=== PATIENT | female | born 1935 | race Caucasian/White ===

== ENCOUNTER 2017-11-06 15:05 | Emergency (ER) | payer MEDICARE, OTHER, SELFPAY ==
[2017-11-06 15:10] VITALS: BP 178/80; PULSE 80; RESP 18; TEMP 36.3; O2SAT 100; BMI 23.1
--- NOTE | 2017-11-06 15:17 | ED.BACK ---
HPI - Back Pain/Injury <JUAN Ruvalcaba - Last Filed: 11/06/17 22:22> General Chief Complaint: Back Pain/Injury Stated Complaint: LEFT SIDED LOW BACK PAIN Time Seen by Provider: 11/06/17 15:17 Source: patient History of Present Illness HPI Narrative: 82-year-old female with history of chronic back pain who recently had lumbar laminectomy toward the end of last year here for pain to her upper and a lower back over the past few months. She denies any recent trauma to her lower back. She states that she had had a long drive towards the beginning of the year it is and had pain since then. She denies any loss of bladder or bowel control. Patient is ambulatory into the emergency room. She denies any stressors or relievers of her pain. MD Complaint: back pain Related Data Home Medications Medication Instructions Recorded Confirmed glipizide 5 mg PO TID 11/06/17 11/06/17 tramadol 25 - 50 mg PO Q8H 11/06/17 11/06/17 Previous Rx's Medication Instructions Recorded cyclobenzaprine 10 mg PO TID PRN #10 tab 11/06/17 hydrocodone-acetaminophen [[place]] 1 tab PO Q6H PRN #10 tab 11/06/17 prednisone 40 mg PO DAILY #8 tab 11/06/17 Allergies Allergy/AdvReac Type Severity Reaction Status Date / Time No Known Drug Allergies Allergy Verified 11/06/17 15:13 Review of Systems <JUAN Ruvalcaba - Last Filed: 11/06/17 22:22> Constitutional Denies chills, Denies fever(s), Denies lethargy and Denies weakness Eyes Denies change in vision, Denies eye discharge, Denies irritation and Denies loss of vision Cardiovascular Denies dyspnea and Denies dyspnea on exertion Respiratory Denies cough, Denies dyspnea, Denies dyspnea on exertion and Denies wheezing Musculoskeletal Reports back pain Neurologic Denies loss of vision and Denies weakness Allergic/Immunologic Denies wheezing Exam <JUAN Ruvalcaba - Last Filed: 11/06/17 22:22> Const General: cooperative and well developed Nutritional Appearance: well nourished Orientation: alert, awake, oriented x3 and not confused Eyes General: appearance normal, both eyes and all related structures Eyelids: eyelids normal Conjunctivae: conjunctivae normal Sclera: sclerae normal Pupils: PERRL EOM: EOM intact bilaterally Resp Effort & Inspection: normal respiratory effort, able to speak in complete sentences, no respiratory distress and no use of accessory muscles Auscultation: clear to auscultation bilaterally, no rales, no rhonchi and no wheezes Cardio Rate: regular rate Rhythm: regular rhythm Heart Sounds: no click, no gallops, no murmurs and no rubs Pulses: normal peripheral pulses Back/Spine/Pelvis Back: back tenderness and No CVA tenderness Thoracic/Lumbar Spine: paraspinal tenderness Other: Distal CMS is intact Neuro General: alert, oriented x3, gait normal and no focal motor deficits Cranial Nerves: CN's II-XI intact bilaterally Speech: speech normal Motor: strength 5/5 throughout Sensory Exam: no sensory deficits noted Extrem General: full ROM, no clubbing, cyanosis or edema, no pedal edema and no calf tenderness Course <JUAN Ruvalcaba - Last Filed: 11/06/17 22:22> Last Vital Signs Temp 97.4 F L 11/06/17 15:10 Pulse 78 11/06/17 16:49 Resp 14 11/06/17 16:49 BP 185/73 H 11/06/17 16:49 Pulse Ox 100 11/06/17 16:49 <Quirino Zuluaga MD - Last Filed: 11/14/17 03:35> Last Vital Signs Temp 97.4 F L 11/06/17 15:10 Pulse 78 11/06/17 16:49 Resp 14 11/06/17 16:49 BP 185/73 H 11/06/17 16:49 Pulse Ox 100 11/06/17 16:49 MDM - Back Pain/Injury <JUAN Ruvalcaba - Last Filed: 11/06/17 22:22> [facility] Narrative Medical decision making narrative: Nontraumatic chronic back pain with no neurological deficits. Patient does have some signs of sciatica down her left leg with tingling into her left thigh. She is prescribed cyclobenzaprine along with short course of steroids. Patient requested pain medication she is prescribed a handful of [place]. She is encouraged not to use cyclobenzaprine the [place] or tramadol at the same time. She is encouraged to follow up with her medical management specialist for re-evaluation as she may need new imaging such as MRI to rule out complications. Return emergency room for any worsening symptoms. <Quirino Zuluaga MD - Last Filed: 11/14/17 03:35> Lab Data The PA/MOLD TECHNICIAN functioned independently for the care of this pt, I was available, but not asked to participate in care. I am unable to determine appropriateness of management without personally examining the pt. Discharge Plan Departure Patient Disposition: Home, Self-Care Clinical Impression: Low back pain Discharge Date/Time: 11/06/17 16:51 Interventions: ED Discharge Assessment Last Done: 11/06/17 16:51 Instructions: DI for Low Back Pain Activity Restrictions/Additional Instructions: Signs and symptoms presents as exacerbation of chronic back pain with sciatica. You have been prescribed a muscle relaxer called cyclobenzaprine use as directed do not use in conjunction with any of the pain medications as it can cause drowsiness that would be worsened with the pain medications. You have also been prescribed a short course of steroids to help with inflammation use as directed. Small amount of [place] is prescribed for pain do not use with your tramadol. Follow up with her primary care provider. Recommend following up with Orthopedics for further evaluation as she may need advanced imaging such as MRI for further evaluation. Return emergency room for any worsening symptoms. Prescriptions: New cyclobenzaprine 10 mg tablet 10 mg PO TID PRN (Reason: muscle spasm) Qty: 10 RF: 0 hydrocodone-acetaminophen [[place]] 5-325 mg tablet 1 tab PO Q6H PRN (Reason: pain) Qty: 10 RF: 0 prednisone 20 mg tablet 40 mg PO DAILY Qty: 8 RF: 0 No Action glipizide 5 mg tablet extended release 24hr 5 mg PO TID RF: 0 tramadol 50 mg tablet 25 - 50 mg PO Q8H RF: 0 Referrals: Tosha Serna PA-C [Primary Care Provider] -
--- NOTE | 2017-11-06 16:10 | ED_ITS ---
HPI - Back Pain/Injury <JUAN Ruvalcaba - Last Filed: 11/06/17 22:22> General Chief Complaint: Back Pain/Injury Stated Complaint: LEFT SIDED LOW BACK PAIN Time Seen by Provider: 11/06/17 15:17 Source: patient History of Present Illness HPI Narrative: 82-year-old female with history of chronic back pain who recently had lumbar laminectomy toward the end of last year here for pain to her upper and a lower back over the past few months. She denies any recent trauma to her lower back. She states that she had had a long drive towards the beginning of the year it is and had pain since then. She denies any loss of bladder or bowel control. Patient is ambulatory into the emergency room. She denies any stressors or relievers of her pain. MD Complaint: back pain Related Data Home Medications Medication Instructions Recorded Confirmed glipizide 5 mg PO TID 11/06/17 11/06/17 tramadol 25 - 50 mg PO Q8H 11/06/17 11/06/17 Previous Rx's Medication Instructions Recorded cyclobenzaprine 10 mg PO TID PRN #10 tab 11/06/17 hydrocodone-acetaminophen [[place]] 1 tab PO Q6H PRN #10 tab 11/06/17 prednisone 40 mg PO DAILY #8 tab 11/06/17 Allergies Allergy/AdvReac Type Severity Reaction Status Date / Time No Known Drug Allergies Allergy Verified 11/06/17 15:13 Review of Systems <JUAN Ruvalcaba - Last Filed: 11/06/17 22:22> Constitutional Denies chills, Denies fever(s), Denies lethargy and Denies weakness Eyes Denies change in vision, Denies eye discharge, Denies irritation and Denies loss of vision Cardiovascular Denies dyspnea and Denies dyspnea on exertion Respiratory Denies cough, Denies dyspnea, Denies dyspnea on exertion and Denies wheezing Musculoskeletal Reports back pain Neurologic Denies loss of vision and Denies weakness Allergic/Immunologic Denies wheezing Exam <JUAN Ruvalcaba - Last Filed: 11/06/17 22:22> Const General: cooperative and well developed Nutritional Appearance: well nourished Orientation: alert, awake, oriented x3 and not confused Eyes General: appearance normal, both eyes and all related structures Eyelids: eyelids normal Conjunctivae: conjunctivae normal Sclera: sclerae normal Pupils: PERRL EOM: EOM intact bilaterally Resp Effort & Inspection: normal respiratory effort, able to speak in complete sentences, no respiratory distress and no use of accessory muscles Auscultation: clear to auscultation bilaterally, no rales, no rhonchi and no wheezes Cardio Rate: regular rate Rhythm: regular rhythm Heart Sounds: no click, no gallops, no murmurs and no rubs Pulses: normal peripheral pulses Back/Spine/Pelvis Back: back tenderness and No CVA tenderness Thoracic/Lumbar Spine: paraspinal tenderness Other: Distal CMS is intact Neuro General: alert, oriented x3, gait normal and no focal motor deficits Cranial Nerves: CN's II-XI intact bilaterally Speech: speech normal Motor: strength 5/5 throughout Sensory Exam: no sensory deficits noted Extrem General: full ROM, no clubbing, cyanosis or edema, no pedal edema and no calf tenderness Course <JUAN Ruvalcaba - Last Filed: 11/06/17 22:22> Last Vital Signs Temp 97.4 F L 11/06/17 15:10 Pulse 78 11/06/17 16:49 Resp 14 11/06/17 16:49 BP 185/73 H 11/06/17 16:49 Pulse Ox 100 11/06/17 16:49 <Quirino Zuluaga MD - Last Filed: 11/14/17 03:35> Last Vital Signs Temp 97.4 F L 11/06/17 15:10 Pulse 78 11/06/17 16:49 Resp 14 11/06/17 16:49 BP 185/73 H 11/06/17 16:49 Pulse Ox 100 11/06/17 16:49 MDM - Back Pain/Injury <JUAN Ruvalcaba - Last Filed: 11/06/17 22:22> [facility] Narrative Medical decision making narrative: Nontraumatic chronic back pain with no neurological deficits. Patient does have some signs of sciatica down her left leg with tingling into her left thigh. She is prescribed cyclobenzaprine along with short course of steroids. Patient requested pain medication she is prescribed a handful of [place]. She is encouraged not to use cyclobenzaprine the [place] or tramadol at the same time. She is encouraged to follow up with her grocery specialist for re-evaluation as she may need new imaging such as MRI to rule out complications. Return emergency room for any worsening symptoms. <Quirino Zuluaga MD - Last Filed: 11/14/17 03:35> Lab Data The PA/RETAIL SALES ASSOCIATE BILINGUAL functioned independently for the care of this pt, I was available, but not asked to participate in care. I am unable to determine appropriateness of management without personally examining the pt. Discharge Plan Departure Patient Disposition: Home, Self-Care Clinical Impression: Low back pain Discharge Date/Time: 11/06/17 16:51 Interventions: ED Discharge Assessment Last Done: 11/06/17 16:51 Instructions: DI for Low Back Pain Activity Restrictions/Additional Instructions: Signs and symptoms presents as exacerbation of chronic back pain with sciatica. You have been prescribed a muscle relaxer called cyclobenzaprine use as directed do not use in conjunction with any of the pain medications as it can cause drowsiness that would be worsened with the pain medications. You have also been prescribed a short course of steroids to help with inflammation use as directed. Small amount of [place] is prescribed for pain do not use with your tramadol. Follow up with her primary care provider. Recommend following up with Orthopedics for further evaluation as she may need advanced imaging such as MRI for further evaluation. Return emergency room for any worsening symptoms. Prescriptions: New cyclobenzaprine 10 mg tablet 10 mg PO TID PRN (Reason: muscle spasm) Qty: 10 RF: 0 hydrocodone-acetaminophen [[place]] 5-325 mg tablet 1 tab PO Q6H PRN (Reason: pain) Qty: 10 RF: 0 prednisone 20 mg tablet 40 mg PO DAILY Qty: 8 RF: 0 No Action glipizide 5 mg tablet extended release 24hr 5 mg PO TID RF: 0 tramadol 50 mg tablet 25 - 50 mg PO Q8H RF: 0 Referrals: Tosha Serna PA-C [Primary Care Provider] -
[2017-11-06 16:49] VITALS: BP 185/73; PULSE 78; RESP 14; O2SAT 100
== END 2017-11-06 16:51 | disposition home or self-care (01) ==
PROVIDERS: Emergency Provider Nurse Practitioner Family; PCP Physician Assistant
DX: M54.5 Low back pain (principal)
CPT/HCPCS: 99282

== ENCOUNTER → 2018-03-25 09:09 | Outpatient (CLI) | payer MEDICARE, OTHER, SELFPAY ==
--- NOTE | 2018-03-25 09:12 | DI.MRI.S_ITS ---
PROCEDURE: MR LUMBAR SPINE WO CON INDICATIONS: low back pain TECHNIQUE: Noncontrast sagittal T1 spin echo and T2 fast echo, sagittal STIR, axial T1 and T2 fast spin echo through the lumbar spine. In cases with scoliosis, additional coronal T2 fast spin echo may be performed. COMPARISON: Merged With [facility], MR, L-SPINE WITHOUT CONTRAST, 04/04/2016, 14:33. Merged With [facility], CR, XR LUMBAR SPINE MIN 4V, 03/25/2018, 9:15. FINDINGS: Image quality: Excellent. Alignment and Curvature: 5 lumbar type vertebral bodies are present by plain film. There is mild grade 1 anterolisthesis of L4 on L5, and mild grade 1 retrolisthesis of L5 on S1, as before. Bone Marrow: Marrow is of normal overall signal. No acute vertebral body compression fractures. Moderate reactive signal within the endplates adjacent to the L5-S1 intervertebral disc is present, as before. Mild reactive signal within the endplates adjacent to the 4 L5 intervertebral disc is present, as before. Posterior fusion hardware at L4-L5 is present, as before. Spinal Cord: Conus medullaris terminates at the mid L2 level. Visualized cord demonstrates normal signal and size. Paraspinous Soft Tissues: No paravertebral masses. L1-L2: Mild disc desiccation. Mild facet and ligamentum flavum hypertrophy. No significant canal, nor foraminal stenosis. No change. L2-L3: Mild disc desiccation. Mild facet hypertrophy bilaterally. No significant canal, nor foraminal stenosis. No change. L3-L4: Mild disc desiccation and mild diffuse disc bulge. Mild facet and ligamentum flavum hypertrophy. Increased, mild canal stenosis. No change in mild bilateral foraminal stenosis. L4-L5: Mild disc desiccation. Moderate diffuse disc bulge. Moderate facet hypertrophy bilaterally. Moderate canal stenosis. Moderate foraminal stenosis bilaterally. No change. L5-S1: Severe disc height loss and desiccation. Moderate diffuse disc bulge. Moderate facet hypertrophy bilaterally. Mild canal stenosis. Slightly increased, severe bilateral foraminal stenosis, with possible mild flattening deformity of the bilateral L5 nerve roots.. IMPRESSION: 1. Multilevel degenerative disc and facet disease, as well as ligamentum flavum hypertrophy. 2. Increased, mild L3-L4 canal stenosis. No change in moderate L4-L5 canal stenosis. 3. Slightly increased, severe bilateral L5-S1 foraminal stenoses, with possible mild flattening deformity of the bilateral L5 nerve roots within the neural foramina. Recommend correlation with clinical symptoms to ascertain relevance of this finding. Dictated by: Ashkan Page M.D. on 03/25/2018 at 10:57 Approved by: Ashkan Page M.D. on 03/25/2018 at 11:03
--- NOTE | 2018-03-25 09:12 | DI.RAD.S_ITS ---
PROCEDURE: XR LUMBAR SPINE MIN 4V INDICATIONS: Eval TECHNIQUE: 5 views of the lumbar spine were acquired. COMPARISON: [facility] [place], LEONID, SPINE LUMB MIN 4VW, 04/01/2016, 11:06. FINDINGS: Bones: No fracture or focal osseous destruction. There is levocurvature centered at L1. Postsurgical changes related to L4-L5 posterior dynamic stabilization device which appears intact. Severe L5-S1 disc degeneration. Trace anterolisthesis of L4-L5 and trace retrolisthesis of L5 on S1. Mild narrowing of the L4-L5 disc space. Soft tissues: Overlying bowel gas pattern is normal. No suspicious soft tissue calcifications. Oblique images: No pars defects. IMPRESSION: Lower lumbar degenerative disc disease and grade 1 anterolisthesis of L4 on L5. No definite interval change. Levoscoliosis as before. Dictated by: Thomas Sharpe M.D. on 03/25/2018 at 11:24 Approved by: Thomas Sharpe M.D. on 03/25/2018 at 11:28
== END ==
PROVIDERS: PCP Physician Assistant; Visit Provider Physical Medicine & Rehabilitation
DX: M54.5 Low back pain (principal); M51.36 Other intervertebral disc degeneration, lumbar region; M51.37 Other intervertebral disc degeneration, lumbosacral region; M48.061 Spinal stenosis, lumbar region without neurogenic claudication; M48.07 Spinal stenosis, lumbosacral region; M53.3 Sacrococcygeal disorders, not elsewhere classified; M96.1 Postlaminectomy syndrome, not elsewhere classified; M43.16 Spondylolisthesis, lumbar region
CPT/HCPCS: 72110; 72148

== ENCOUNTER 2018-04-14 09:26 | Outpatient (CLI) | payer MEDICARE, OTHER, SELFPAY ==
[2018-04-14] VITALS (11 sets, daily range): BP systolic 140–170; BP diastolic 50–87; PULSE 72–84; RESP 16–18; TEMP 36.1; O2SAT 97–100
--- NOTE | 2018-04-14 09:32 | DI.RAD.S_ITS ---
PROCEDURE: PAIN L/S TRANSFORAMINAL INJECT INDICATIONS: Spinal stenosis with left lower extremity symptoms FINDINGS: Fluoroscopic spot filming was performed to verify placement of spinal needles at the left-sided L4-5 level(s), as labeled on the films. Appropriate location(s) of the needle tip(s) was confirmed by injection of iodinated contrast. IMPRESSION: Successful left L4-5 needle tip localization for transforaminal epidural steroid injection. Dictated by: Marquis Velasquez M.D. on 04/14/2018 at 16:34 Approved by: Marquis Velasquez M.D. on 04/14/2018 at 16:34
[2018-04-14] MEDS: MIDAZOLAM 5 MG/5 ML VIAL IV (10:25)
[2018-04-14] MEDS: IOPAMIDOL 15 ML VIAL 3 ML INJ (10:35)
[2018-04-14] MEDS: BUPIVACAINE 0.25% (PF) VIAL 2 ML INJ (10:35)
[2018-04-14] MEDS: methylPREDNISolone acetate 80 MG/ML VIAL INJ (10:35)
[2018-04-14] MEDS: DEXAMETHASONE 10 MG/ML VIAL 20 MG INJ (10:35)
--- NOTE | 2018-04-14 10:37 | PC.NURSE ---
pt being transported to post op area in stable condition
--- NOTE | 2018-04-14 10:42 | P.PCN_ITS ---
Procedures Date/Time Date of procedure: 04/14/18 Time of procedure: 10:41 General Procedure description: PREOP DIAGNOSIS 1. FORMAINAL STENOSIS WITH LE SYMPTOMS POST OP DIAGNOSIS 1. FORMAINAL STENOSIS WITH LE SYMPTOMS PROCEDURES 1. FLUOROSCOPICALLY GUIDED CONTRAST CONTROLLED TRANSFORAMINAL EPIDURAL STEROID INJECTION - LEFT L4/5 PHYSICIAN: Jakub Moe DO INDICATIONS: Tyesha is referred by JINNY Serna for treatment of Foraminal Stenosis with Left LE Symptoms FINDINGS Foraminal Nerve Root Compression secondary to disc disease and facet hypertrophy DESCRIPTION OF PROCEDURE: Following denial of allergy and review of potential side effects and complications, including, but not necessarily limited to, infection, allergic reaction, local tissue breakdown, stroke, temporary or permanent nerve injury, paralysis, and possible , the patient indicated that the patient understood and agreed to proceed. An informed consent document was signed by the patient, witnessed by a nurse, and placed in the patient's chart. Additionally, other treatment options including medications, modalities, and physical therapy were reviewed with the patient. After review of previous anaesthesic history and IV conscious sedation the patient was deemed safe to proceed with todays procedure with IV conscious sedation as ASA class II designation. Safety time-out was performed to confirm patient ID, procedure to be performed and site of procedure. IV sedation was accomplished with a combination of 2mg of Versed administered by the RN after DO order, titrated to patient comfort during the course of the procedure while the patient remained responsive to all verbal commands In the prone position following sterile prep and drape of the lumbar region, the left L4/5 posterior neuroforamen was identified fluoroscopically. The skin was anesthetized via a 25-gauge 1.5-inch needle with 1% lidocaine solution. At this point, a 25-gauge 3.5-inch spinal needle was atraumatically introduced and advanced under fluoroscopic guidance through the posterior left L4/5 neuroforamen to approximately the anterior aspect of the canal. Depth was confirmed on lateral view. Following negative aspiration, injection of approximately 1.5 cc of Isovue 200 under live fluoroscopy in the AP view confirmed excellent flow along the nerve root, into the epidural space without vascular or intrathecal uptake observed Radiological data, including multiple fluoroscopic views of the lumbosacral spine, reveal a spinal needle at the left L4/5 posterior neuroforamen. Subsequent views show flow of contrast material flowing superiorly and inferiorly along the nerve root confirming epidural flow. Subsequently, a test dose of 1.5 cc of 1% lidocaine solution was administered and patient was observed for two minutes for signs or symptoms of complications , including abdominal pain, shortness of breath, bilateral upper or lower extremity weakness, nausea and vomiting, prior to steroid injection. At this point, a total of 3 cc or 20 mg of dexamethasone and 80mg Depo Medrol was injected without incident. The procedure tolerated the procedure well without signs or symptoms of complications prior to transfer to the recovery area continued monitoring without incident. The patient was then transferred to the recovery area where they were observed for an appropriate time after the injection. The patient reported a VAS score of 7 prior to the procedure and a post- procedure VAS of 0. Total Fluoroscopy Time: 20.9 seconds Total Conscious Sedation Time: 24min POST OP INSTRUCTIONS The patient was provided a Pain Log to continue to record their response to the target-specific procedure prior to follow-up visit with their referring physician. Additionally, specific post-injection care instructions and a contact number to our office were provided if concerns arise regarding possible complications associated with the procedure are suspected. Jakub Moe DO Complications: none
--- NOTE | 2018-04-14 10:47 | PC.NURSE ---
recieved from Mony via w/c, able to transfer self from w/c to recliner, pain free. tolerating drinking coffee and eating cookie
== END 2018-04-14 11:04 ==
PROVIDERS: PCP Physician Assistant; Visit Provider Physical Medicine & Rehabilitation
DX: M48.061 Spinal stenosis, lumbar region without neurogenic claudication (principal); M51.16 Intervertebral disc disorders with radiculopathy, lumbar region; M99.83 Other biomechanical lesions of lumbar region
CPT/HCPCS: 64483; 99152; J1040; J1100; J2250

== ENCOUNTER 2018-04-28 12:54 | Outpatient (CLI) | payer MEDICARE, OTHER, SELFPAY ==
[2018-04-28] VITALS (7 sets, daily range): BP systolic 141–167; BP diastolic 54–70; PULSE 64–85; RESP 13–18; TEMP 36.3; O2SAT 98–100
--- NOTE | 2018-04-28 12:55 | DI.RAD.S_ITS ---
PROCEDURE: PAIN L/SI FACET INJ/BLK 1STL INDICATIONS: Lumbosacral spondylosis FINDINGS: Fluoroscopic spot filming was performed to verify placement of spinal needles at the left L4-L5 and L5-S1 level(s), as labeled on the films. Appropriate location(s) of the needle tip(s) was confirmed by injection of iodinated contrast. IMPRESSION: Fluoroscopy foca management Dictated by: Wilton Hamilton M.D. on 04/28/2018 at 17:10 Approved by: Wilton Hamilton M.D. on 04/28/2018 at 17:11
[2018-04-28] MEDS: BETAMETHASONE 30 MG/5 ML MDV 12 MG INJ (14:14)
[2018-04-28] MEDS: MIDAZOLAM 2 MG/2 ML VIAL IV (14:14)
[2018-04-28] MEDS: IOPAMIDOL 15 ML VIAL 3 ML INJ (14:25)
[2018-04-28] MEDS: BUPIVACAINE 0.5% (PF) VIAL 2 ML INJ (14:25)
--- NOTE | 2018-04-28 14:30 | P.PCN_ITS ---
Procedures Date/Time Date of procedure: 04/28/18 Time of procedure: 14:28 General Procedure description: PREOP DIAGNOSIS 1. FACET ARTHROPATHY, 2. AXIAL LBP, 3. MULTILEVEL DDD, POST OP DIAGNOSIS 1. FACET ARTHROPATHY, 2. AXIAL LBP, 3. MULTILEVEL DDD, PROCEDURES 1. FLUOROSCOPICALLY GUIDED CONTRAST CONTROLLED FACET JOINT INJECTIONS LEFT L4/5 , L5/S1 SURGEON: Jakub Moe, INDICATIONS Tyesha is referred by JINNY Serna for treatment of Axial LBP FINDINGS Multilevel Facet Arthropathy with Clinically significant axial LBP DESCRIPTION OF PROCEDURE Fluoroscopically guided, contrast-controlled left L4/5, L5/S1 facet joint injections. Following denial of allergy and review of potential side effects and complications, including, but not necessarily limited to, infection, allergic reaction, local tissue breakdown, stroke, temporary or permanent nerve injury, paralysis, and possible , the patient indicated that the patient understood and agreed to proceed. An informed consent document was signed by the patient, witnessed by a nurse, and placed in the patient's chart. Additionally, other treatment options including medications, modalities, and physical therapy were reviewed with the patient. After review of previous anaesthesic history and IV conscious sedation the patient was deemed safe to proceed with todays procedure with IV conscious sedation as ASA class II designation. Safety time-out was performed to confirm patient ID, procedure to be performed and site of procedure. IV sedation was accomplished with a combination of 2mg was administered by the RN after DO order , titrated to patient comfort during the course of the procedure while the patient remained responsive to all verbal commands. In the prone position, following sterile prep and drape of the lumbar region, the posterior aspect of the left L4/5, L5/S1 facet joints were identified fluoroscopically. The skin was anesthetized via a 25-gauge 1.5-inch needle with 1% lidocaine solution into the corresponding facet joints. At this point, a 22-gauge 3.5-inch spinal needle was atraumatically introduced and advanced under fluoroscopic guidance into the corresponding facet joints. Following negative aspiration, injections of approximately 0.2-cc of Isovue 200 confirmed interarticular placement without vascular uptake. Radiological data, including multiple fluoroscopic views of the lumbosacral spine, reveal a spinal needle at the left L4/5, L5/S1 facet joints. Subsequent views show flow of contrast material both superiorly and inferiorly within the joint space without vascular or intrathecal uptake. At this point, a total of 0.5 cc including a mixture of 0.25cc Marcaine and 0.25cc betamethasone was injected without complication into each of the corresponding facet joints. The procedure tolerated the procedure well without signs or symptoms of complications prior to transfer to the recovery area continued monitoring without incident. The patient was then transferred to the recovery area where they were observed for an appropriate period of time after the injection. The patient reported a VAS score of 7 prior to the procedure and a post-procedure VAS of 0. Total Fluoroscopy Time: 12.7 seconds Total Conscious Sedation Time: 24min POST OP INSTRUCTIONS The patient was provided a Pain Log to continue to record their response to the target-specific procedure prior to follow-up visit with their referring physician. Additionally, specific post-injection care instructions and a contact number to our office were provided if concerns arise regarding possible complications associated with the procedure are suspected. Jakub Moe DO Complications: none
--- NOTE | 2018-04-28 14:37 | PC.NURSE ---
ACCEPTED CARE OF PT POST PROCEDURE. PT IN STABLE CONDITION
--- NOTE | 2018-04-28 14:38 | PC.NURSE ---
pt tolerated procedure, assisted pt off table and into w/c without difficulty, she is alert and maintaining her vs. Transferred pt to pre procedure room for continued monitoring by Mony SANTILLAN
== END 2018-04-28 14:58 | disposition home or self-care (01) ==
LOC: RAD 12:55
PROVIDERS: PCP Physician Assistant; Visit Provider Physical Medicine & Rehabilitation
DX: M47.816 Spondylosis without myelopathy or radiculopathy, lumbar region (principal); M47.817 Spondylosis without myelopathy or radiculopathy, lumbosacral region; M51.36 Other intervertebral disc degeneration, lumbar region; M51.37 Other intervertebral disc degeneration, lumbosacral region; M54.5 Low back pain
CPT/HCPCS: 64493; 64494; 99152; J0702; J2250

== ENCOUNTER 2018-06-02 14:30 | Outpatient (CLI) | payer MEDICARE, OTHER, SELFPAY ==
[2018-06-02] VITALS (9 sets, daily range): BP systolic 150–170; BP diastolic 59–99; PULSE 76–87; RESP 16–18; TEMP 36.3; O2SAT 99–100
--- NOTE | 2018-06-02 14:32 | DI.RAD.S_ITS ---
PROCEDURE: PAIN L/SI FACET INJ/BLK 1STL INDICATIONS: SPONDYLOSIS FINDINGS: Fluoroscopic spot filming was performed to verify placement of spinal needles at the L4, L5, S1 level(s), as labeled on the films. Appropriate location(s) of the needle tip(s) was confirmed by injection of iodinated contrast. Dictated by: Thomas Sharpe M.D. on 06/03/2018 at 9:43 Approved by: Thomas Sharpe M.D. on 06/03/2018 at 9:44
[2018-06-02] MEDS: MIDAZOLAM 5 MG/5 ML VIAL IV (15:34)
[2018-06-02] MEDS: BUPIVACAINE 0.5% (PF) VIAL 2 ML INJ (15:44)
[2018-06-02] MEDS: IOPAMIDOL 15 ML VIAL 3 ML INJ (15:44)
[2018-06-02] MEDS: LIDOCAINE 1% 20 ML INJ 10 ML INJ (15:44)
[2018-06-02] MEDS: BETAMETHASONE 30 MG/5 ML MDV 12 MG INJ (15:44)
--- NOTE | 2018-06-02 15:46 | PC.NURSE ---
ASSISTING PT OFF TABLE AND TRANSPORTING TO POST PROC AREA IN STABLE CONDITION
--- NOTE | 2018-06-02 15:54 | P.PCN_ITS ---
Procedures Date/Time Date of procedure: 06/02/18 Time of procedure: 15:53 General Procedure description: POST OP DIAGNOSIS 1. FACET ARTHROPATHY PROCEDURES 1. Left L4, L5 and S1 MB BLOCKS PHYSICIAN: Jakub Moe DO BARBER Arambula is referred by KAHLIL Serna for treatment of Left Axial LBP. DESCRIPTION OF PROCEDURE Fluoroscopically guided, contrast-controlled left L4, L5 and S1 medial branch blocks with 0.5cc of 0.5% Marcaine. Following denial of allergy and review of potential side effects and complications, including, but not necessarily limited to, infection, allergic reaction, local tissue breakdown, nerve injury, paralysis, stroke and possible , the patient indicated that the patient understood and agreed to proceed. An informed consent document was signed by the patient, witnessed by a nurse, and placed in the patient's chart. After review of previous anaesthesic history and IV conscious sedation the patient was deemed safe to proceed with todays procedure with IV conscious sedation as ASA class II designation. Safety time-out was performed to confirm patient ID, procedure to be performed and site of procedure. IV sedation was accomplished with a combination of 4mg of Versed was administered by the RN after DO order, titrated to patient comfort during the course of the procedure while the patient remained responsive to all verbal commands. In the prone position, following sterile prep and drape of the lumbar region, the left L4, L5 and S1 anatomical location of the medial branch of the dorsal ramus was identified fluoroscopically. Subsequently an anesthetic skin wheal using 1% lidocaine solution was initiated at each of the anatomical spots. Subsequently then a 22-gauge 3.5-inch spinal needle was atraumatically introduced and advanced under fluoroscopic guidance at each of the corresponding sites at the left L4, L5 and S1 MB. After negative aspiration, 0.2 cc of Isovue 200 was injected, confirming placement without vascular or intrathecal uptake. Subsequently then 0.5 cc of 0.5% Marcaine solution was injected at each of the corresponding sites at the left L4, L5 and S1 medial branch locations. The patient tolerated the procedure well without signs or symptoms of complications. The patient tolerated the procedure well without signs or symptoms of complications prior to transfer to the recovery area continued monitoring without incident. Post-procedure, the patient was monitored initiating provocative activities to measure the amount of relief from block of the facetogenic pain. The patient reported a VAS of 7 prior to the procedure and a post-procedure VAS of 1. It has been a pleasure to assist in the diagnostic and therapeutic care of your patient. Total Fluoroscopy Time: 24.8 seconds Total Conscious Sedation Time: 24min POST OP INSTRUCTIONS The patient was provided with a Pain Log to complete over the next several hours and subsequent days prior to the patient's follow up with the ordering physician. If the patient has insole lip turner relief to the solution applied, then they may be a candidate for medial branch rhizotomy. The patient is aware , was provided, once again, with a Pain Log and will follow up with the referring physician for review and clinical correlation Jakub Moe DO Complications: none
--- NOTE | 2018-06-03 12:32 | PC.NURSE ---
Follow up call made and patient reports she is doing great. Pain at a 2/10 and she is up doing her usual booking of her flights and such.
== END 2018-06-02 16:24 ==
LOC: RAD 14:32
PROVIDERS: PCP Physician Assistant; Visit Provider Physical Medicine & Rehabilitation
DX: M47.817 Spondylosis without myelopathy or radiculopathy, lumbosacral region (principal); M47.816 Spondylosis without myelopathy or radiculopathy, lumbar region; M51.26 Other intervertebral disc displacement, lumbar region; M48.07 Spinal stenosis, lumbosacral region; M96.1 Postlaminectomy syndrome, not elsewhere classified
CPT/HCPCS: 64493; 64494; 99152; J0702; J2250

== ENCOUNTER → 2019-02-16 12:31 | Outpatient (CLI) | payer MEDICARE, OTHER, SELFPAY ==
--- NOTE | 2019-02-16 | DI.US.S_ITS ---
LIMITED ULTRASOUND OF RIGHT BREAST: 02/16/2019 CLINICAL: Microcalcifications right breast. Comparison is made to exams dated: 02/16/2019 mammogram, 03/28/2008 mammogram, 02/08/2004 mammogram - [facility], and 04/10/2000 mammogram - [facility]. Color flow and real-time ultrasound of the right breast outer aspect were performed. Gonzales scale images of the real-time examination were reviewed. There is a 0.5 x 0.2 x 0.5 cm oval indistinct hypoechoic mass in the right breast at 9:00 position 4 cm from the nipple which demonstrates no vascularity on Doppler imaging. There is 0.6 x 0.6 x 0.3 cm oval indistinct hypoechoic mass in the right breast at 11:30 position 2 cm from the nipple which demonstrates no vascularity on Doppler imaging. There is no convincing ultrasound correlate for the segmental pleomorphic calcifications of the lateral right breast seen on comparison diagnostic mammography performed immediately prior to this exam. Targeted ultrasound of the right axilla demonstrates a 1.5 x 1.9 x 1.0 cm right axillary lymph node with focal cortical thickening of 4 mm. IMPRESSION: HIGHLY SUGGESTIVE OF MALIGNANCY 1) Subcentimeter hypoechoic masses in the right breast at 9:00 position 4 cm from the nipple and 11:30 position 2 cm from the nipple are indeterminate and may representing complicated cysts versus malignancy. There is no convincing ultrasound correlate for the segmental pleomorphic calcifications of the lateral right breast seen on diagnostic mammography. A stereotactic guided biopsy is recommended but deferred at this time pending ultrasound guided biopsy of the more suspicious lesion in the left breast. Subsequent biopsy of the right breast can be performed to evaluate for extent of disease if clinically indicated. Consider breast MRI for further evaluation. 2) Abnormal cortical thickening of the right axillary lymph node is moderately suspicious for malignancy. An ultrasound-guided biopsy is recommended but deferred at this time pending ultrasound guided biopsy of the more suspicious lesion in the left breast. Subsequent biopsy of the right axilla can be performed to evaluate for extent of disease if clinically indicated. These results and recommendations were discussed with the patient at the time of the exam by the [facility] Radiologist Dr. Thomas Sharpe in person. This exam was interpreted at Station ID: [id number]. Electronically Signed By: Miguel Lopez M.D. ecl/:02/16/2019 16:51:19 letter sent: Biopsy Required Ultrasound BI-RADS: 5 Highly suggestive of malignancy
--- NOTE | 2019-02-16 | DI.MG.S_ITS ---
BILATERAL DIGITAL DIAGNOSTIC MAMMOGRAM 3D/2D: 02/16/2019 CLINICAL: Left breast lump. Comparison is made to exams dated: 03/28/2008 mammogram, 02/08/2004 mammogram - [facility], and 04/10/2000 mammogram - [facility]. The tissue of both breasts is heterogeneously dense. This may lower the sensitivity of mammography. There is a triangular marker overlying the skin of the superior left breast at the site of the patient's reported palpable abnormality. There are extensive pleomorphic calcifications of the superior left breast in a segmental distribution involving both the superior medial and superior lateral quadrants. These measure at least 4.1 cm anteroposterior by 7.4 cm craniocaudal by 7.3 cm medial-lateral in extent. There are irregular indistinct focal asymmetries associated with the calcifications. There are also extensive pleomorphic calcifications of the right breast in a segmental distribution involving both the superior lateral and inferior lateral quadrants. These measure at least 4.5 cm anteroposterior by 4.1 cm craniocaudal by 6.4 cm medial-lateral in extent. There are irregular indistinct focal asymmetries associated with the calcifications. IMPRESSION: INCOMPLETE: NEEDS ADDITIONAL IMAGING EVALUATION 1) 7.4 x 7.3 x 4.1 cm extensive segmental pleomorphic calcifications of the superior left breast involving both the superior medial and superior lateral quadrants. Targeted diagnostic ultrasound recommended for further evaluation, which will be performed immediately following this exam. 2) 6.4 x 4.5 x 4.1 cm extensive segmental pleomorphic calcifications of the lateral right breast involving both the superior lateral and inferior lateral quadrants. Targeted diagnostic ultrasound recommended for further evaluation, which will be performed immediately following this exam. This exam was interpreted at Station ID: [id number]. NOTE: For mammograms, a report in lay terms will be sent to the patient. Approximately 15% of breast malignancies will not be visualized mammographically. In the management of a palpable breast mass, a negative mammogram must not discourage biopsy of a clinically suspicious lesion. Electronically Signed By: Miguel Lopez M.D. ecl/:02/16/2019 13:40:38 ACR BI-RADS Category 0: Incomplete [id number]
--- NOTE | 2019-02-16 | DI.US.S_ITS ---
LIMITED ULTRASOUND OF LEFT BREAST: 02/16/2019 CLINICAL: Palpable left breast lump. Comparison is made to exams dated: 02/16/2019 mammogram, 03/28/2008 mammogram, 02/08/2004 mammogram - [facility], and 04/10/2000 mammogram - [facility]. Color flow and real-time ultrasound of the left breast upper aspect were performed. Gonzales scale images of the real-time examination were reviewed. There is a 2.9 x 3.4 x 1.7 cm irregular hypoechoic mass with angular margins and internal calcifications in the left breast at 11:00 position 3 cm from the nipple, which demonstrates peripheral vascularity on Doppler ultrasound. This correlates with the site of patient's focal palpable concern, as well as the segmental pleomorphic calcifications seen on diagnostic mammography. There is a 1.1 x 0.7 x 1.0 cm irregular hypoechoic mass with indistinct margins and no significant vascularity on Doppler ultrasound in the left breast at 2:00 position 2 cm from the nipple. Targeted ultrasound of the left axilla demonstrates a left axillary lymph nodes demonstrating cortical thickening up to 3 mm. IMPRESSION: HIGHLY SUGGESTIVE OF MALIGNANCY 1. 3.4 x 2.9 x 1.7 cm irregular annular mass in the left breast at 11:00 position 3 cm from the nipple is highly suggestive of malignancy, and correlates with both the patient's focal palpable area of concern and the segmental pleomorphic calcifications seen on diagnostic mammography. An ultrasound-guided biopsy is recommended. 2. Left axillary lymph node demonstrating borderline cortical thickening, which is at low suspicion for malignancy. An ultrasound-guided biopsy is recommended. 3. 1.1 x 1.0 x 0.7 cm irregular indistinct mass in the left breast at 2:00 position 2 cm from the nipple is at moderate suspicion for malignancy. An ultrasound-guided biopsy is recommended but deferred at this time pending pathology results from the additional biopsies recommended above. The biopsy can be performed to assess for extent of disease, versus breast MRI to evaluate disease extent. These results and recommendations were discussed with the patient at the time of the exam by the [facility] Radiologist Dr. Thomas Sharpe in person. This exam was interpreted at Station ID: [id number]. Electronically Signed By: Miguel Lopez M.D. ecl/:02/16/2019 16:40:48 letter sent: Biopsy Required Ultrasound BI-RADS: 5 Highly suggestive of malignancy
== END ==
PROVIDERS: Visit Provider Student in an Organized Health Care Education/Training Program
DX: N63.20 Unspecified lump in the left breast, unspecified quadrant (principal)
CPT/HCPCS: 76642; 77066; G0279

== ENCOUNTER → 2019-03-08 07:38 | Outpatient (CLI) | payer MEDICARE, OTHER, SELFPAY ==
--- NOTE | 2019-03-08 | DI.MG.S_ITS ---
UNILATERAL LEFT DIGITAL DIAGNOSTIC MAMMOGRAM POST-NEEDLE BIOPSY: 03/08/2019 CLINICAL: Left breast post biopsy. Comparison is made to exams dated: 03/28/2008 mammogram, 02/08/2004 mammogram - [facility], 04/10/2000 mammogram - [facility], 02/16/2019 ultrasound, 02/16/2019 ultrasound, and 02/16/2019 mammogram - [facility]. The tissue of left breast is heterogeneously dense. This may lower the sensitivity of mammography. There is a new mindy-shaped biopsy marker clip in the superior medial left breast at posterior depth. This is located at the biopsy site. There is redemonstration of suspicious calcifications within the superior left breast. IMPRESSION: POST PROCEDURE MAMMOGRAM FOR MARKER PLACEMENT There is a new mindy-shaped biopsy marker clip in the superior medial left breast at posterior depth. This is located at the biopsy site. This exam was interpreted at Station ID: [id number]. NOTE: For mammograms, a report in lay terms will be sent to the patient. Approximately 15% of breast malignancies will not be visualized mammographically. In the management of a palpable breast mass, a negative mammogram must not discourage biopsy of a clinically suspicious lesion. Electronically Signed By: Miguel Lopez M.D. ecl/:03/08/2019 10:15:47 ACR BI-RADS Category Post-procedure mammogram for marker placement
--- NOTE | 2019-03-08 | DI.US.S_ITS ---
ULTRASOUND GUIDED BIOPSY LEFT BREAST USING VACUUM DEVICE WITH MARKING DEVICE INSERTED AND POST DIGITAL MAMMOGRAPHIC IMAGIN03/08/2019 CLINICAL: Left breast mass. PATIENT CONSENT: Risks (minor bleeding, infection, vasovagal reaction and repeat procedure), benefits and alternatives were explained to the patient and written informed consent was obtained. Correlation is made to exams dated: 03/08/2019 mammogram, 02/16/2019 ultrasound, 02/16/2019 ultrasound, 02/16/2019 mammogram, 03/28/2008 mammogram, and 02/08/2004 mammogram - [facility]. An ultrasound guided biopsy using real-time ultrasound was performed for the concerning mass located in the left breast at 11 o'clock posterior depth 3 cm from the nipple. This was described on the previous ultrasound report. The skin was prepped in the usual manner. A skin roddy was made in the breast. The abnormality was approached from the lateral aspect. A 13 gauge biopsy needle was placed adjacent to the abnormality under ultrasound guidance. Once the needle was documented to be in the correct location, ten specimens were obtained using the Mammotome biopsy system. A Mauro-shaped clip was inserted into the biopsy cavity. A skin adhesive was applied to the access site. Post procedure digital mammographic imaging demonstrates the location device at the targeted area. The specimens were sent to the laboratory for pathological analysis. IMPRESSION: ULTRASOUND GUIDED BIOPSY MALIGNANT Ultrasound guided biopsy of the mass in the left breast at 11 o'clock posterior depth 3 cm from the nipple was successful with no apparent post procedure complications. Pathology indicates malignant invasive ductal carcinoma (ID). Pathology results are concordant with imaging findings. A surgical/oncologic consultation is recommended. This exam was interpreted at Station ID: [id number]. Miguel Fowler M.D. [facility],aty/:03/11/2019 17:47:35
--- NOTE | 2019-03-08 | PATH_ITS ---
[facility] Accession Number: [id number] . 01 Material submitted: . breast - LEFT BREAST MASS 11 O'CLOCK 3 CM FN CORE BIOPSY, 10 PASSES . 02 Diagnosis: Left Breast Mass, 11 o'clock, 3 cm from Nipple, Needle Core Biopsies: Invasive ductal carcinoma with the following features: 1. Holt grade: 2 of 3 (poor tubule formation, intermediate nuclear grade, low mitotic activity). 2. Greatest linear extent: 3 mm. 3. Ductal carcinoma in situ: Not identified. 4. Microcalcifications: Present in association with carcinoma and benign breast parenchyma. 5. Lymphovascular invasion: Not identified. . . BREAST BIOMARKERS: Estrogen Receptor (ER) Status: Positive, 80%. Average intensity of staining: Strong. Primary antibody: SP1 Progesterone Receptor (PgR) Status: Negative. Average intensity of staining: Not applicable. Primary antibody: 1E2 HER2 (by immunohistochemistry): Equivocal (2+) Primary antibody: 4B5 HER2 (ERBB2) (by in situ hybridization): Results are pending, and will be issued in an addendum. . . Cold Ischemia and Fixation Times: Meets requirements in the latest version of the ASCO/CAP guidelines. Testing performed on Block Number: A1. . TECHNICAL NOTE: The scoring criteria for breast biomarkers by immunohistochemistry is based on the current ASCO/CAP guidelines (Charbel et al, Arch Pathol Lab Med 2010: 134(6): 907-922 / Rad FARLEY et al, Arch Pathol Lab Med 2014: 138(2): 241-256). Deparaffinized sections of formalin fixed tissue (along with appropriate positive controls) are incubated with the above antibody(s). Using the automated [place] stainer, tissue is incubated with the designated antibody* which is then localized by a non-biotin, dual polymer detection system. The external controls are reviewed for appropriate reactivity and found to be adequate. Results on the target cell population are indicated above. These tests have not been validated on decalcified tissue. V 03/10/2019 1737 Local . 02 Comment: As part of routine senior software quality engineer, Dr. Coyne has reviewed the H/E slides from this case and agrees with the diagnosis of invasive mammary carcinoma. The findings in this case were reported to Nicole Whitman PA-C via her medical leader Tori by Dr. Santiago Marlow on 03/09/2019 at 2:00 p.m. . 02 Electronically signed: . Santiago Marlow MD, PhD, Pathologist NPI- [id number] . 01 Gross description: . Received one formalin-filled container labeled with the patient's name and designated left breast mass 11 o'clock 3 CM FN core biopsy 10 passes. The specimen is received with a plastic filter in container, sample loose in container and consists of multiple yellow-crowley portions of tissue which range in size from less than 0.1 cm to 0.5 x 0.1 x 0.1 cm. The specimen is filtered, wrapped, and entirely submitted in one cassette. Collection date: 03/08/2019. Possible collection time per requisition: 10:52. Total fixation time: 12 hours, up to 24. ([id number]) /[facility] 03/09/2019 0238 Local . 02 Microscopic: . Sections are of fibrotic breast parenchyma infiltrated by proliferation of epithelioid cells in a trabecular growth pattern, consistent with invasive mammary carcinoma. The carcinoma cells are strongly and diffusely positive for e-cadherin by immunohistochemistry, consistent with ductal carcinoma, and excluding lobular carcinoma. The carcinoma cells are positive for estrogen receptor reactivity (80%, strong), are negative for progesterone receptor reactivity, and are equivocal (2+) for HER-2/protein overexpression. All controls stains show appropriate reactivity. . * This test was developed and its performance characteristics determined by [employer]. It has not been cleared or approved by the U.S. Food and Drug Administration. The FDA has determined that such clearance or approval is not necessary. This test is used for clinical purposes. It should not be regarded as investigational or for research. . 02 Pathologist provided ICD-10: C50.912 . 02 CPT . 312729, L13050, [id number] Performed at: 01 [facility] [address] [id number] MD Brock Buck MD Phone: [phone] Performed at: 02 [facility] [address] [place], [place] [id number] MD Angela Coyne MD Phone: [phone]
== END ==
PROVIDERS: PCP Student in an Organized Health Care Education/Training Program; Visit Provider Student in an Organized Health Care Education/Training Program
DX: C50.212 Malignant neoplasm of upper-inner quadrant of left female breast (principal); Z17.0 Estrogen receptor positive status [ER+]
CPT/HCPCS: 19083; 77065; 88305; 88341

== ENCOUNTER 2019-03-11 14:30 | Outpatient (CLI) | payer MEDICARE, OTHER, SELFPAY ==
[2019-03-11] VITALS (7 sets, daily range): BP systolic 144–164; BP diastolic 63–84; PULSE 76–93; RESP 16; TEMP 36.2; O2SAT 100
--- NOTE | 2019-03-11 14:31 | DI.RAD.S_ITS ---
PROCEDURE: PAIN SI JOINT INJECTION INDICATIONS: SACROCOCCYGEAL DISORDER FINDINGS: Fluoroscopic spot filming was performed to verify placement of spinal needles at the sacroiliac joint level(s), as labeled on the films. Appropriate location(s) of the needle tip(s) was confirmed by injection of iodinated contrast. Dictated by: Thomas Sharpe M.D. on 03/11/2019 at 17:03 Approved by: Thomas Sharpe M.D. on 03/11/2019 at 17:04
[2019-03-11] MEDS: MIDAZOLAM 5 MG/5 ML VIAL IV (16:14)
[2019-03-11] MEDS: IOPAMIDOL 15 ML VIAL 3 ML INJ (16:18)
[2019-03-11] MEDS: BETAMETHASONE 30 MG/5 ML MDV 12 MG INJ (16:18)
[2019-03-11] MEDS: BUPIVACAINE 0.5% (PF) VIAL 2 ML INJ (16:19)
--- NOTE | 2019-03-11 16:20 | PC.NURSE ---
ASSISTING PT OFF TABLE AND TRANSPORTING TO POST PROC AREA IN STABLE CONDITION
--- NOTE | 2019-03-11 16:22 | P.PCN_ITS ---
Procedures Date/Time Date of procedure: 03/11/19 Time of procedure: 16:22 General Procedure description: PREOP Dx: Sacroiliac joint pain/DJD POST OP DX: Sacroiliac Joint Pain/DJD Procedures: Fluoroscopic guided contrast controlled left sacroiliac joint injection Physician: Jakub Moe D.O. Indications: Tyesha is referred by JINNY Whitman for treatment of left sacroiliac joint DJD Description of procedure Fluoroscopic guided, contrast controlled left sacroiliac joint injection Following review of allergies and review of potential side effects and complications, including, but not necessarily limited to, infection, allergic r eaction, local tissue breakdown, temporary as well as permanent nerve injury, paralysis, stroke and possible , the patient indicated that they understood and agreed to proceed. An informed consent was signed by the patient, witnessed by a nurse, and placed in the patient's chart. Additionally, other treatment options including modalities, medications, and physical therapy were reviewed with the patient. After review of previous anaesthesic history and IV conscious sedation the patient was deemed safe to proceed with todays procedure with IV conscious sedation as ASA class II designation. Safety time-out was performed to confirm patient ID, procedure to be performed and site of procedure. IV sedation was accomplished with a combination of 1mg of Versed administered by the RN after DO order, titrated to patient comfort during the course of the procedure while the patient remained responsive to all verbal commands. In the prone position following sterile prep and drape of the pelvic region, the hyper lucency on in the inferior aspect of the left sacroiliac joint was identified fluoroscopically the skin was anesthetized be a 25 gauge 1 eventual with approximately 2 cc of 1% lidocaine solution. At this point, a 22 gauge 3 in spinal needle was atraumatically introduced and advanced under fluoroscopic guidance into the inferior aspect of the left sacroiliac joint. Following negative aspiration, approximately 0.3 cc of Isovue-300 was injected confirming intra-articular placement without vascular uptake. Radiographic data, including multiple fluoroscopic views of the pelvis, reveals a spinal needle in the left sacroiliac joint hyper lucent zone. Subsequent view show flow contrast tear superiorly and inferiorly within the joint capsule without vascular intrathecal uptake. At this point a total of 1cc or 0.5% Marcaine was combined with 1cc of 6mg of betamethasone was injected without incident. The patient tolerated the procedure well without signs or symptoms of complications prior to transfer to the recovery area for further monitoring. The patient was then transferred to the recovery area with a bur observed for an appropriate time after the injection. The patient reverted a vas score of 7 prior to the procedure and postprocedure vas of 1. Total fluoroscopy time: 22.7 sec Total conscious sedation time: 24 min Postop instructions The patient was provided with a pain like to continue to record the patient's response to the target specific procedure prior to the patient's follow-up visit with the referring physician. Additionally, specific post injection care instructions and a contact number to our office were provided if concerns arise regarding the possible complications associated with procedure are suspected. Jakub Moe D.O. Complications: none
== END 2019-03-11 17:00 | disposition home or self-care (01) ==
LOC: RAD 14:31
PROVIDERS: PCP Student in an Organized Health Care Education/Training Program; Visit Provider Physical Medicine & Rehabilitation
DX: M53.3 Sacrococcygeal disorders, not elsewhere classified (principal); M47.898 Other spondylosis, sacral and sacrococcygeal region
CPT/HCPCS: 27096; 99152; J0702; J2250; J3010

== ENCOUNTER 2019-07-20 12:25 | Outpatient (CLI) | payer MEDICARE, OTHER, SELFPAY ==
[2019-07-20] VITALS (8 sets, daily range): BP systolic 131–179; BP diastolic 62–80; PULSE 67–82; RESP 16; TEMP 36.2; O2SAT 98–100
--- NOTE | 2019-07-20 12:26 | DI.RAD.S_ITS ---
PROCEDURE: PAIN L/S TRANSFORAMINAL INJECT INDICATIONS: INTERVERTEBRAL DISK DISPLACEMENT FINDINGS: Fluoroscopic spot filming was performed to verify placement of spinal needles at the L4-L5 level(s), as labeled on the films. Appropriate location(s) of the needle tip(s) was confirmed by injection of iodinated contrast. Dictated by: Thomas Sharpe M.D. on 07/20/2019 at 14:18 Approved by: Thomas Sharpe M.D. on 07/20/2019 at 14:18
[2019-07-20] MEDS: MIDAZOLAM 5 MG/5 ML VIAL IV (13:34)
[2019-07-20] MEDS: BETAMETHASONE 30 MG/5 ML MDV 6 MG INJ (13:42)
[2019-07-20] MEDS: DEXAMETHASONE 10 MG/ML VIAL 20 MG INJ (13:42)
[2019-07-20] MEDS: IOPAMIDOL 15 ML VIAL 3 ML INJ (13:42)
[2019-07-20] MEDS: BUPIVACAINE 0.25% (PF) VIAL 2 ML INJ (13:42)
--- NOTE | 2019-07-20 13:46 | PC.NURSE ---
ASSISTING PT OFF TABLE AND TRANSPORTING TO POST PROC AREA IN STABLE CONDITION. PASSING RN CARE OF PT OFF TO SHANI Real RN.
--- NOTE | 2019-07-20 13:54 | P.PCN_ITS ---
Procedures Date/Time Date of procedure: 07/20/19 Time of procedure: 13:54 General Procedure description: PREOP DIAGNOSIS 1. FORMAINAL STENOSIS WITH LE SYMPTOMS POST OP DIAGNOSIS 1. FORMAINAL STENOSIS WITH LE SYMPTOMS PROCEDURES 1. FLUOROSCOPICALLY GUIDED CONTRAST CONTROLLED TRANSFORAMINAL EPIDURAL STEROID INJECTION - LEFT L4/5 PHYSICIAN: Jakub Moe DO INDICATIONS: Tyesha is referred by JINNY Whitman for treatment of Foraminal Stenosis with Left LE Symptoms FINDINGS Foraminal Nerve Root Compression secondary to disc disease and facet hypertrophy DESCRIPTION OF PROCEDURE: Following review of allergy and review of potential side effects and complications, including, but not necessarily limited to, infection, allergic reaction, local tissue breakdown, stroke, temporary or permanent nerve injury, paralysis, and possible , the patient indicated that the patient understood and agreed to proceed. An informed consent document was signed by the patient, witnessed by a nurse, and placed in the patient's chart. Additionally, other treatment options including medications, modalities, and physical therapy were reviewed with the patient. After review of previous anaesthesic history and IV conscious sedation the p atient was deemed safe to proceed with todays procedure with IV conscious sedation as ASA class II designation. Safety time-out was performed to confirm patient ID, procedure to be performed and site of procedure. IV sedation was accomplished with 1mg of Versed administered by the RN after DO order, titrated to patient comfort during the course of the procedure while the patient remained responsive to all verbal commands In the prone position following sterile prep and drape of the lumbar region, the left L4/5 posterior neuroforamen was identified fluoroscopically. The skin was anesthetized via a 25-gauge 1.5-inch needle with 1% lidocaine solution. At this point, a 25-gauge 3.5-inch spinal needle was atraumatically introduced and advanced under fluoroscopic guidance through the posterior left L4/5 neuroforamen to approximately the anterior aspect of the canal. Depth was confirmed on lateral view. Following negative aspiration, injection of approximately 1cc of Isovue 200 under live fluoroscopy in the AP view confirmed excellent flow along the nerve root, into the epidural space without vascular or intrathecal uptake observed Radiological data, including multiple fluoroscopic views of the lumbosacral spine, reveal a spinal needle at the left L4/5 posterior neuroforamen. Subsequent views show flow of contrast material flowing superiorly and inferiorly along the nerve root confirming epidural flow. Subsequently, a test dose of 1.5 cc of 1% lidocaine solution was administered and patient was observed for two minutes for signs or symptoms of complications, including abdominal pain, shortness of breath, bilateral upper or lower extremity weakness, nausea and vomiting, prior to steroid injection. At this point, a total of 3cc or 20mg of dexamethasone and 6mg of betamethasone was injected without incident. The procedure tolerated the procedure well without signs or symptoms of complications prior to transfer to the recovery area continued monitoring withou t incident. The patient was then transferred to the recovery area where they were observed for an appropriate time after the injection. The patient reported a VAS score of 7 prior to the procedure and a post- procedure VAS of 0. Total Fluoroscopy Time: 7 seconds Total Conscious Sedation Time: 24min POST OP INSTRUCTIONS The patient was provided a Pain Log to continue to record their response to the target-specific procedure prior to follow-up visit with their referring physician. Additionally, specific post-injection care instructions and a contact number to our office were provided if concerns arise regarding possible complications associated with the procedure are suspected. Jakub Moe DO Complications: none
--- NOTE | 2019-07-20 14:08 | PC.NURSE ---
Post procedure discharge note: Patient arrived at 1355. Awake and slightly drowsy. VSS on arrival. Able to transfer from w/c to recliner with stand by assist. Hand off report received from Ziyad Apple RN. Discharge instructions given and explained to patient with good understanding. Pain level 0/10. Able to stand and transfer to wheelchair independently. Discharged to home with friend at 1410.
== END 2019-07-20 14:10 | disposition home or self-care (01) ==
LOC: RAD 12:26
PROVIDERS: Family Provider Student in an Organized Health Care Education/Training Program; PCP Student in an Organized Health Care Education/Training Program; Visit Provider Physical Medicine & Rehabilitation
DX: M47.816 Spondylosis without myelopathy or radiculopathy, lumbar region (principal); M51.16 Intervertebral disc disorders with radiculopathy, lumbar region
CPT/HCPCS: 64483; 99152; J0702; J1100; J2250; J3010